=== PATIENT | female | born 1950 | race American Indian/Alaskan Native ===

== ENCOUNTER → 2016-10-15 | Outpatient (CLI) | payer MEDICARE ==
[~2016-10-15] MED LIST: ACET-1600 PO; CHOL20003 PO; CLOB50SO2 TP; DABI150C PO; FOSI40TA2 PO; HYDR12.58 PO; IBUP400T PO; METO-93 PO; SIMV40TA3 PO; VIT1CAPS42 PO
[2016-10-15 08:45] LABS: HEMOGLOBIN 14.4 g/dL (11.7-16.4)
[2016-10-15 09:28] LABS: ASPARTATE AMINO TRANSFERASE 17 U/L (15-37); BLOOD UREA NITROGEN 11 mg/dL (7-18)
== END | disposition home or self-care (01) ==
LOC: LAB 08:27
PROVIDERS: ATTEND Family Medicine
DX: E55.9 Vitamin D deficiency, unspecified (principal); R10.30 Lower abdominal pain, unspecified; R53.83 Other fatigue; C50.919 Malignant neoplasm of unspecified site of unspecified female breast
CPT/HCPCS: 36415; 80053; 80061; 81001; 82150; 82306; 83690; 84443; 85025

== ENCOUNTER → 2017-06-19 | Outpatient (CLI) | payer MEDICARE ==
[~2017-06-19] MED LIST changes: +CHOL2000 PO; -CHOL20003 PO; +IBUP-1221 PO; -IBUP400T PO
== END | disposition home or self-care (01) ==
LOC: CFH 13:57
PROVIDERS: ATTEND Internal Medicine Critical Care Medicine
DX: Z12.2 Encounter for screening for malignant neoplasm of respiratory organs (principal); R91.1 Solitary pulmonary nodule; Z87.891 Personal history of nicotine dependence
CPT/HCPCS: G0297

== ENCOUNTER → 2017-08-21 | Outpatient (CLI) | payer MEDICARE | LOC: CFH 15:32 | PROVIDERS: ATTEND Nurse Practitioner Family | DX: E04.1 Nontoxic single thyroid nodule (principal) | CPT/HCPCS: 76536 ==

== ENCOUNTER → 2017-09-06 | Outpatient (CLI) | payer MEDICARE ==
[~2017-09-06] MED LIST changes: +LIDOCAINE 1%, 20ML ONE
== END | disposition home or self-care (01) ==
LOC: RAD 09:15
PROVIDERS: ATTEND Family Medicine
DX: E04.1 Nontoxic single thyroid nodule (principal)
CPT/HCPCS: 76942; 88112; 88173; J3490

== ENCOUNTER → 2018-01-14 | Outpatient (CLI) | payer MEDICARE ==
[~2018-01-14] MED LIST changes: -LIDOCAINE 1%, 20ML ONE
== END | disposition home or self-care (01) ==
LOC: CVU 07:19
PROVIDERS: ATTEND Internal Medicine Cardiovascular Disease
DX: I48.0 Paroxysmal atrial fibrillation (principal); I87.2 Venous insufficiency (chronic) (peripheral); R60.0 Localized edema; I10 Essential (primary) hypertension; Z85.3 Personal history of malignant neoplasm of breast; Z90.12 Acquired absence of left breast and nipple
CPT/HCPCS: 93306; 93970

== ENCOUNTER → 2018-02-07 | Outpatient (CLI) | payer MEDICARE ==
[~2018-02-07] MED LIST changes: +ANAS1TAB PO; +ATOR40TA PO; -FOSI40TA2 PO; +FOSI40TA4 PO; +REGADENOSON 0.4 MG/5 ML SYRINGE ONE; +RIVA20TA PO
== END | disposition home or self-care (01) ==
LOC: CFH 08:39
PROVIDERS: ATTEND Internal Medicine Cardiovascular Disease
DX: I44.7 Left bundle-branch block, unspecified (principal); I48.91 Unspecified atrial fibrillation; I10 Essential (primary) hypertension; E78.2 Mixed hyperlipidemia
CPT/HCPCS: 78452; 93017; A9502; J2785

== ENCOUNTER 2018-03-26 12:22 | Day surgery (SDC) | payer MEDICARE ==
[~2018-03-26] VITALS: Ht 172.7 cm; Wt 84.0 kg
[~2018-03-26 12:22] MED LIST changes: -REGADENOSON 0.4 MG/5 ML SYRINGE ONE
[2018-03-26] MEDS ORDERED: SODIUM CHLORIDE 0.9% 1,000 ML IV ONE (12:57)
[2018-03-26] MEDS ORDERED: ASPIRIN 325 MG TABLET PO ONE (13:00)
[2018-03-26 13:04] VITALS: BP 142/96
[2018-03-26] MEDS ORDERED: METH750T2 PO (13:04)
[2018-03-26] MEDS ORDERED: ASPIRIN 325 MG TABLET EC ONE (13:32)
[2018-03-26] MEDS ORDERED: FENTANYL PF 100 MCG/2ML ONE (13:38)
[2018-03-26] MEDS ORDERED: BIVALIRUDIN 250 MG ONE (13:38)
[2018-03-26] MEDS ORDERED: MIDAZOLAM 1 MG/ML, 5ML ONE (13:38)
[2018-03-26] MEDS ORDERED: LIDOCAINE-MPF 2%, 2ML ONE (13:38)
[2018-03-26] MEDS ORDERED: HEPARIN 1,000 UNITS/ML, 10ML ONE (13:39)
[2018-03-26] MEDS ORDERED: VERAPAMIL 2.5 MG/ML, 2ML ONE (14:00)
[2018-03-26] MEDS ORDERED: SODIUM CHLORIDE 0.9% 1,000 ML IV SCH (14:37)
== END 2018-03-26 16:20 | disposition home or self-care (01) ==
LOC: CACL 12:22
PROVIDERS: ATTEND Internal Medicine Cardiovascular Disease
DX: I51.89 Other ill-defined heart diseases (principal); I87.2 Venous insufficiency (chronic) (peripheral); I10 Essential (primary) hypertension; I48.0 Paroxysmal atrial fibrillation; E78.2 Mixed hyperlipidemia; G60.9 Hereditary and idiopathic neuropathy, unspecified; Z85.3 Personal history of malignant neoplasm of breast; G47.33 Obstructive sleep apnea (adult) (pediatric)
CPT/HCPCS: 93458; 99156; C1769; C1894; J1644; J2250; J3010; J3490; Q9967; J0583

== ENCOUNTER → 2018-06-09 | Outpatient (CLI) | payer MEDICARE ==
[~2018-06-09] MED LIST changes: -FOSI40TA4 PO; +FOSI40TA5 PO; -HYDR12.58 PO; +HYDROCHLOROTH12.5 MG PO; +METH750T2 PO
== END | disposition home or self-care (01) ==
LOC: CFH 11:11
PROVIDERS: ATTEND Family Medicine
DX: E04.1 Nontoxic single thyroid nodule (principal); R91.1 Solitary pulmonary nodule
CPT/HCPCS: 71250; 76536

== ENCOUNTER 2018-11-02 14:28 | Emergency (ER) | payer MEDICARE ==
[~2018-11-02] VITALS: Ht 172.7 cm; Wt 88.9 kg
[2018-11-02 14:43] VITALS: BP 142/81
--- NOTE | 2018-11-02 14:57 | NUR ---
PT TO ED FOR CUT TO RIGHT THUMB WHILE USING A MANDOLIN TO SLICE FOOD. PT TAKES XARELTO FOR ABIB. BLEEDING STOPPED WITH MANUAL PRESSURE. CONNECTED TO MONITOR. VSS. AT BEDSIDE. NO NEEDS EXPRESSED. CALL LIGHT WITHIN REACH. AWAITING EDMD ASSESSMENT.
--- NOTE | 2018-11-02 15:00 | NUR ---
edmd to bs for assessment.
[2018-11-02] MEDS ORDERED: BACITRACIN ZINC OINT 500U/GM, 0.9 GM ONE (15:16)
[2018-11-02] MEDS ORDERED: HYDROcodone/APAP 5/325 TABLET ONE (15:19)
--- NOTE | 2018-11-02 15:20 | NUR ---
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 awaiting dc.
[2018-11-02] MEDS ORDERED: HYDROcodone/APAP 5/325 TABLET PO ONE (15:30)
== END 2018-11-02 16:26 | disposition home or self-care (01) ==
LOC: ED 15:21
DX: S61.011A Laceration without foreign body of right thumb without damage to nail, initial encounter (principal); I48.91 Unspecified atrial fibrillation; I10 Essential (primary) hypertension; E11.9 Type 2 diabetes mellitus without complications; W27.4XXA Contact with kitchen utensil, initial encounter; Y93.89 Activity, other specified; Y92.009 Unspecified place in unspecified non-institutional (private) residence as the place of occurrence of the external cause; Y99.8 Other external cause status
CPT/HCPCS: 99283

== ENCOUNTER → 2018-11-05 | Outpatient (CLI) | payer MEDICARE ==
[~2018-11-05] MED LIST changes: +OMNIPAQUE 350 MG/ML, 100ML BOTTLE ONE
== END | disposition home or self-care (01) ==
LOC: RAD 11:11
PROVIDERS: ATTEND Family Medicine
DX: K63.89 Other specified diseases of intestine (principal)
CPT/HCPCS: 74177; Q9967

== ENCOUNTER → 2018-11-12 | Outpatient (CLI) | payer MEDICARE ==
[~2018-11-12] MED LIST changes: -OMNIPAQUE 350 MG/ML, 100ML BOTTLE ONE
== END | disposition home or self-care (01) ==
LOC: RAD 10:19
PROVIDERS: ATTEND Family Medicine
DX: M47.814 Spondylosis without myelopathy or radiculopathy, thoracic region (principal)
CPT/HCPCS: 72072; 72100

== ENCOUNTER → 2018-12-18 | Outpatient (CLI) | payer MEDICARE | END | disposition home or self-care (01) | LOC: RAD 14:23 | PROVIDERS: ATTEND Orthopaedic Surgery | DX: M47.816 Spondylosis without myelopathy or radiculopathy, lumbar region (principal) | CPT/HCPCS: 72120 ==

== ENCOUNTER 2019-01-23 12:38 | Outpatient (CLI) | payer MEDICARE | END 2019-01-23 23:59 | disposition home or self-care (01) | LOC: CFH 12:38 | PROVIDERS: ATTEND Physician Assistant Surgical | DX: Z02.9 Encounter for administrative examinations, unspecified (principal) ==

== ENCOUNTER → 2019-08-27 | Outpatient (CLI) | payer MEDICARE ==
[~2019-08-27] MED LIST changes: +SIMV40TA20 PO; -SIMV40TA3 PO
== END | disposition home or self-care (01) ==
LOC: CARD 08:30
PROVIDERS: ATTEND Internal Medicine Cardiovascular Disease
DX: I48.91 Unspecified atrial fibrillation (principal); I10 Essential (primary) hypertension; R07.9 Chest pain, unspecified; E78.5 Hyperlipidemia, unspecified
CPT/HCPCS: 93017; 93350

== ENCOUNTER 2019-09-07 18:36 | Emergency (ER) | payer MEDICARE ==
[~2019-09-07] VITALS: Ht 172.7 cm; Wt 88.7 kg
[2019-09-07] MEDS ORDERED: SODIUM CHLORIDE FLUSH 10ML SYR IVF ONE (19:00)
[2019-09-07 19:21] LABS: BASOPHILS # (AUTO) 0.01 x10^3/uL (0-0.1); BASOPHILS % (AUTO) 0 % (0-1); EOSINOPHILS # (AUTO) 0.01 x10^3/uL (0-0.4); EOSINOPHILS % (AUTO) 0 % (1-7); LYMPHOCYTES # (AUTO) 0.41 x10^3/uL (1-3.4); LYMPHOCYTES % (AUTO) 11 % (22-44); MD NO; MEAN CORPUSCULAR HEMOGLOBIN 31.1 pg (27.0-34.8); MEAN CORPUSCULAR HGB CONC 33.9 g/dL (32.4-35.8); MEAN CORPUSCULAR VOLUME 91.7 fL (80-100); MEAN PLATELET VOLUME 8.2 fL (7.4-10.4); MONOCYTES # (AUTO) 0.39 x10^3/uL (0.2-0.8); MONOCYTES % (AUTO) 11 % (2-9); NEUTROPHILS # (AUTO) 2.73 x10^3/uL (1.8-6.8); NEUTROPHILS % (AUTO) 77 % (42-75); PLATELET COUNT 219 x10^3/uL (130-400); RED BLOOD COUNT 3.84 x10^6/uL (3.82-5.3); RED CELL DISTRIBUTION WIDTH 14.5 % (9.6-15.2)
[2019-09-07 19:26] LABS: ALBUMIN 2.9 g/dL (3.4-5.0); ANION GAP 6 mmol/L (5-15); CALCIUM 8.1 mg/dL (8.5-10.1); CHLORIDE 103 mmol/L (98-107)
--- NOTE | 2019-09-07 21:29 | NUR ---
PT IN [facility] IN [facility]. DR POND AT . PT AMBULATES TO RESTROOM WITH STEADY GAIT AT THIS TIME.
--- NOTE | 2019-09-07 21:39 | NUR ---
PT URINE COLLECTED AND SENT TO LAB AT THIS TIME.
[2019-09-07 21:44] LABS: RAPID INFLUENZA A POSITIVE (Negative); RAPID INFLUENZA B Negative (Negative)
[2019-09-07 21:51] LABS: MICROSCOPIC NOT IND
--- NOTE | 2019-09-07 21:57 | NUR ---
PT DECLINING IV ACCESS UNTIL ORDERS RECEIVED FOR AN IV INTERVENTION. PT STATES "I NEED A BREAK FROM NEEDLES"
[2019-09-07 21:59] LABS: CULTURE INDICATED? NO
[2019-09-07 23:08] VITALS: BP 133/71
--- NOTE | 2019-09-07 23:08 | NUR ---
PT D/C WITH D/C SUMMARY AND SCRIPTS. ALL QUESTIONS ANSWERED. PT AMBULATES TO REGISTRATION DESK WITH STEADY GAIT FOR D/C HOME. PT DENIES ANY OTHER NEEDS PERTAINING TO THIS VISIT.
== END 2019-09-07 23:13 | disposition home or self-care (01) ==
LOC: ED 23:10
DX: J10.08 Influenza due to other identified influenza virus with other specified pneumonia (principal); J15.9 Unspecified bacterial pneumonia; I10 Essential (primary) hypertension; I11.9 Hypertensive heart disease without heart failure; I48.91 Unspecified atrial fibrillation; Z87.891 Personal history of nicotine dependence; Z85.3 Personal history of malignant neoplasm of breast; Z90.49 Acquired absence of other specified parts of digestive tract
CPT/HCPCS: 36415; 71045; 80048; 81003; 82040; 83605; 84145; 85025; 87040; 87400; 93005; 99285

== ENCOUNTER → 2020-01-27 | Outpatient (CLI) | payer MEDICARE | END | disposition home or self-care (01) | LOC: CVU 07:31 | PROVIDERS: ATTEND Internal Medicine | DX: I08.0 Rheumatic disorders of both mitral and aortic valves (principal); I48.91 Unspecified atrial fibrillation; E78.5 Hyperlipidemia, unspecified; I10 Essential (primary) hypertension; Z85.3 Personal history of malignant neoplasm of breast | CPT/HCPCS: 93306 ==

== ENCOUNTER 2020-03-08 09:05 | Day surgery (SDC) | payer MEDICARE ==
[~2020-03-08] VITALS: Ht 172.7 cm; Wt 88.6 kg
[2020-03-08] MEDS ORDERED: LIDOCAINE 2%, 20ML ONE (09:36)
== END 2020-03-08 10:37 | disposition home or self-care (01) ==
LOC: CACL 09:05
PROVIDERS: ATTEND Internal Medicine Cardiovascular Disease
DX: I48.0 Paroxysmal atrial fibrillation (principal); I10 Essential (primary) hypertension; I87.2 Venous insufficiency (chronic) (peripheral); I25.2 Old myocardial infarction; E78.2 Mixed hyperlipidemia; G47.33 Obstructive sleep apnea (adult) (pediatric); Z79.01 Long term (current) use of anticoagulants; Z79.899 Other long term (current) drug therapy; Z85.3 Personal history of malignant neoplasm of breast
CPT/HCPCS: 33285; C1764